=== PATIENT | female | born 1995 | race Caucasian/White ===

== ENCOUNTER 2021-10-27 15:14 | Day surgery (SDC) | payer BC ==
[2021-10-27 15:39] VITALS: BMI 47.4
[2021-10-27] MEDS ORDERED: hydrALAZINE 20 MG/ML VIAL SLOW IVP PRN (16:27)
[2021-10-27 17:36] LABS: Creatinine, Urine 207.02 mg/dL (47-110)
[2021-10-27 18:15] LABS: #Eosinphils 0.1 10x3/uL (0.0-0.5); #Monocytes 0.8 10x3/uL (0.0-1.1); #Neutrophils 7.9 10x3/uL (1.5-8.4); %Basophils 0.3 % (0.0-2.0); %Eosinophils 0.9 % (0.0-6.0); %Lymphocytes 15.7 % (18.0-47.0); %Monocytes 7.3 % (0.0-10.0); Hemoglobin 12.2 g/dL (12.0-15.5); Mean Corpuscular Volume 91.1 fl (81.6-98.3); Mean Platelet Volume 10.6 fl (7.4-10.4); Platelet Count 240 10x3/uL (150-450); RBC Distribution Width 13.5 % (11.5-14.5); Red Blood Cell (RBC) Count 3.94 10x6/uL (3.90-5.03); White Blood Cell (WBC) Count 10.6 10x3/uL (3.5-10.5)
[2021-10-27 18:30] LABS: ALT (SGPT) 20 U/L (8-55); AST (SGOT) 17 U/L (5-34); Albumin 3.6 g/dL (3.5-5.0); Alkaline Phosphatase 66 U/L (40-110); Anion Gap 15 mmol/L (10-20); BUN (Urea Nitrogen) 4 mg/dL (7.0-18.7); Bilirubin, Total 0.3 mg/dL (0.2-1.2); Calc. Creatinine Clearance 406 mL/min (70-130); Calcium 9.9 mg/dL (7.8-10.44); Carbon Dioxide 21 mmol/L (22-29); Chloride 103 mmol/L (98-107); Estimated GFR 133; Glucose 83 mg/dL (70-105); Potassium 3.2 mmol/L (3.5-5.1); Protein, Total 6.6 g/dL (6.0-8.3); Sodium 136 mmol/L (136-145)
== END 2021-10-27 19:10 | disposition home or self-care (01) ==
LOC: CSHLD/OP 15:14
PROVIDERS: ATTEND Obstetrics & Gynecology
DX: O99.891 Other specified diseases and conditions complicating pregnancy (principal); R03.0 Elevated blood-pressure reading, without diagnosis of hypertension; Z3A.28 28 weeks gestation of pregnancy
CPT/HCPCS: 36415; 80053; 82570; 84156; 85025; 99282

== ENCOUNTER 2021-12-25 08:10 | Outpatient (CLI) | payer BC | END 2021-12-25 08:11 | disposition home or self-care (01) | LOC: CSHLAB 08:10 | PROVIDERS: ATTEND Advanced Practice Midwife | DX: Z20.822 Contact with and (suspected) exposure to COVID-19 (principal) | CPT/HCPCS: 87811 ==

== ENCOUNTER 2021-12-28 18:00 | Inpatient (IN) | payer BC ==
[2021-12-28] MEDS ORDERED: Promethazine HCl 25 MG/ML VIAL IM PRN (18:54)
[2021-12-28] MEDS ORDERED: Lidocaine 1% (PF) 30 ML VIAL SC PRN (18:54)
[2021-12-28] MEDS ORDERED: Misoprostol 200 MCG TAB PR PRN (18:54)
[2021-12-28] MEDS ORDERED: Ibuprofen 800 MG TAB PO PRN (18:54)
[2021-12-28] MEDS ORDERED: Diphenoxylate HCl/Atropine Tablet PO PRN ×2 (18:54)
[2021-12-28] MEDS ORDERED: Carboprost 250 MCG/ML AMP IM PRN (18:54)
[2021-12-28] MEDS ORDERED: Ondansetron PF 4 MG/2 ML Vial IVP PRN (18:54)
[2021-12-28] MEDS ORDERED: HYDROcodone/Acetaminophen 5/325 mg Tablet PO PRN ×2 (18:54)
[2021-12-28] MEDS ORDERED: hydrALAZINE 20 MG/ML VIAL SLOW IVP PRN (18:54)
[2021-12-28] MEDS ORDERED: Butorphanol Tartrate 1 MG/ML VIAL SLOW IVP PRN (18:54)
[2021-12-28] MEDS ORDERED: Penicillin G Potassium 5 MILL.UNITS in Sodium Chloride 0.9% 100 ML IVPB SCH (19:00)
[2021-12-28] MEDS ORDERED: NS w/ Oxytocin 30 units 500 ML IV SCH ×2 (19:00)
[2021-12-29] MEDS ORDERED: ePHEDrine Sulfate 50 MG/10 ML VIAL ONE (06:00)
[2021-12-29] MEDS ORDERED: Bupivacaine/Epinephrine 0.25% 30 ML VIAL ONE (06:00)
[2021-12-29 07:21] LABS: Hemoglobin 12.3 g/dL (12.0-15.5); Mean Corpuscular HGB CONC 34.6 g/dL (32.0-36.0); Mean Corpuscular Hemoglobin 31.2 pg (27.0-33.0); Mean Corpuscular Volume 90.1 fl (81.6-98.3); Mean Platelet Volume 10.7 fl (7.4-10.4); Platelet Count 195 10x3/uL (150-450); RBC Distribution Width 13.8 % (11.5-14.5); Red Blood Cell (RBC) Count 3.94 10x6/uL (3.90-5.03); White Blood Cell (WBC) Count 9.9 10x3/uL (3.5-10.5)
[2021-12-29 07:51] LABS: HBSAg Index 0.23 S/CO (0-0.99); Hep B Surf Ag Non-Reactive S/CO (NonReactive)
[2021-12-29 07:53] LABS: Syphilis Antibody Nonreactive (Nonreactive); Syphilis Antibody Index 0.06 S/CO (<1.00 Non-Reactive)
[2021-12-29] MEDS ORDERED: Penicillin G Potassium 5 MILL.UNITS VIAL ONE (07:54)
[2021-12-29] MEDS: Misoprostol 100 MCG TAB VAG SCH ×3 (07:54→22:10)
[2021-12-29 13:11] VITALS: BMI 47.4
[2021-12-29] MEDS: Penicillin G 2.5 MILL.units 2.5 MILL.UNITS in Premix Bag 1 BAG IVPB SCH ×3 (14:01→23:09)
[2021-12-29] MEDS ORDERED: Zolpidem Tartrate 5 MG TAB PO PRN (21:00)
[2021-12-30] MEDS: Misoprostol 100 MCG TAB VAG SCH (02:19)
[2021-12-30] MEDS: Penicillin G 2.5 MILL.units 2.5 MILL.UNITS in Premix Bag 1 BAG IVPB SCH ×3 (05:02→20:29)
[2021-12-30] MEDS ORDERED: Fentanyl 2 mcg/Bup 0.1% Cadd 100 ML ONE (19:14)
[2021-12-30] MEDS ORDERED: Naloxone HCl 0.4 mg/ml Vial IVP PRN ×2 (20:05)
[2021-12-30] MEDS ORDERED: Ondansetron PF 4 MG/2 ML Vial IVP PRN (20:05)
[2021-12-30] MEDS ORDERED: diphenhydrAMINE 50 MG/ML VIAL IVP PRN (20:05)
[2021-12-30] MEDS ORDERED: Acetaminophen 325 MG TAB PO PRN (20:05)
[2021-12-30] MEDS ORDERED: Promethazine HCl 25 MG/ML VIAL IM PRN (20:05)
[2021-12-30] MEDS ORDERED: ePHEDrine Sulfate 50 MG/10 ML VIAL SLOW IVP PRN (20:05)
[2021-12-30] MEDS ORDERED: Lactated Ringer's 500 ML IV PRN (20:05)
[2021-12-30] MEDS ORDERED: Moisturizing Cream (Eucerin) 113 GM JAR TOP PRN (20:05)
[2021-12-30] MEDS ORDERED: Communication Order-Pharmacy FS SCH (20:15)
[2021-12-30] MEDS ORDERED: Fentanyl 2 mcg/Bupivacaine 0.1% Cassette 100 ML EPIDURAL SCH (20:15)
[2021-12-30] MEDS ORDERED: Fentanyl 100 MCG/2 ML VIAL ONE (21:58)
[2021-12-31] MEDS: Lactated Ringer's 1,000 ML IV SCH ×3 (00:45→06:13)
[2021-12-31] MEDS: Penicillin G 2.5 MILL.units 2.5 MILL.UNITS in Premix Bag 1 BAG IVPB SCH ×3 (00:45→00:47)
[2021-12-31] MEDS: Misoprostol 100 MCG TAB VAG SCH ×2 (00:46→06:16)
[2021-12-31] MEDS ORDERED: NS w/ Oxytocin 30 units 500 ML IV SCH (05:24)
[2021-12-31] MEDS ORDERED: Bisacodyl 10 MG SUPP PR PRN (05:24)
[2021-12-31] MEDS ORDERED: Milk Of Magnesia 30 ML UDCUP PO PRN (05:24)
[2021-12-31] MEDS ORDERED: Boostrix 0.5 ML (Tdap) VIAL (>/=7 yrs of age) IM ONE (05:24)
[2021-12-31] MEDS ORDERED: HYDROcodone/Acetaminophen 5/325 mg Tablet PO PRN (05:24)
[2021-12-31] MEDS ORDERED: Ondansetron PF 4 MG/2 ML Vial IVP PRN (05:24)
[2021-12-31] MEDS ORDERED: hydrALAZINE 20 MG/ML VIAL SLOW IVP PRN (05:24)
[2021-12-31] MEDS ORDERED: Misoprostol 200 MCG TAB VAG PRN (05:24)
[2021-12-31] MEDS ORDERED: Benzocaine-Menthol 82.5 ML CAN TOP PRN (05:24)
[2021-12-31] MEDS ORDERED: Lanolin Ointment 7 GM TUBE TOP PRN (05:24)
[2021-12-31] MEDS: Ibuprofen 800 MG TAB PO SCH ×3 (05:35→21:23)
[2021-12-31] MEDS: HYDROcodone/Acetaminophen 5/325 mg Tablet PO PRN ×3 (07:19→22:34)
[2021-12-31] MEDS ORDERED: NS w/ Oxytocin 30 units 500 ML ONE (07:30)
[2021-12-31] MEDS ORDERED: Misoprostol 200 MCG TAB ONE (07:30)
[2021-12-31] MEDS ORDERED: Carboprost 250 MCG/ML AMP ONE (07:30)
[2021-12-31] MEDS ORDERED: Methylergonovine 0.2 MG/ML VIAL ONE (07:30)
[2021-12-31 08:29] LABS: Hemoglobin 11.1 g/dL (12.0-15.5); Mean Corpuscular HGB CONC 34.8 g/dL (32.0-36.0); Mean Corpuscular Hemoglobin 31.4 pg (27.0-33.0); Mean Corpuscular Volume 90.1 fl (81.6-98.3); Mean Platelet Volume 10.6 fl (7.4-10.4); Platelet Count 171 10x3/uL (150-450); RBC Distribution Width 13.8 % (11.5-14.5); Red Blood Cell (RBC) Count 3.54 10x6/uL (3.90-5.03); White Blood Cell (WBC) Count 14.3 10x3/uL (3.5-10.5)
[2021-12-31 08:48] LABS: D-Dimer Test 3.21 mg/L FEU (0.19-0.50); PTT 29.8 sec (22.0-33.0); Prothrombin Time 10.7 sec (9.5-12.1)
[2021-12-31] MEDS ORDERED: Misoprostol 200 MCG TAB PR SCH (09:00)
[2021-12-31] MEDS ORDERED: Diphenoxylate HCl/Atropine Tablet PO SCH (09:00)
[2021-12-31] MEDS ORDERED: Carboprost 250 MCG/ML AMP IM SCH (09:00)
[2021-12-31] MEDS: Ferrous Sulfate 325 MG TAB PO SCH ×2 (09:17→18:17)
[2021-12-31] MEDS ORDERED: Tranexamic Acid 1,000 MG in Sodium Chloride 0.9% 250 ML 250 ML IVPB SCH ×2 (10:15→11:15)
[2021-12-31] MEDS: Docusate 100 MG CAP PO SCH ×2 (10:59→21:23)
[2021-12-31] MEDS: Prenatal Vitamin 1 TAB PO SCH (10:59)
[2021-12-31 15:13] LABS: Hemoglobin 10.1 g/dL (12.0-15.5); Mean Corpuscular HGB CONC 34.5 g/dL (32.0-36.0); Mean Corpuscular Hemoglobin 31.1 pg (27.0-33.0); Mean Corpuscular Volume 90.2 fl (81.6-98.3); Mean Platelet Volume 10.5 fl (7.4-10.4); Platelet Count 185 10x3/uL (150-450); RBC Distribution Width 13.9 % (11.5-14.5); Red Blood Cell (RBC) Count 3.25 10x6/uL (3.90-5.03); White Blood Cell (WBC) Count 12.9 10x3/uL (3.5-10.5)
[2021-12-31] MEDS ORDERED: Lactated Ringer's 1,000 ML IV SCH (18:30)
[2022-01-01] MEDS: Ibuprofen 800 MG TAB PO SCH ×3 (05:16→21:08)
[2022-01-01] MEDS: Lactated Ringer's 1,000 ML IV SCH (08:00)
[2022-01-01] MEDS: Penicillin G 2.5 MILL.units 2.5 MILL.UNITS in Premix Bag 1 BAG IVPB SCH (08:01)
[2022-01-01] MEDS: Misoprostol 100 MCG TAB VAG SCH (08:01)
[2022-01-01] MEDS: Docusate 100 MG CAP PO SCH ×2 (08:36→21:09)
[2022-01-01] MEDS: Ferrous Sulfate 325 MG TAB PO SCH ×2 (08:36→17:04)
[2022-01-01] MEDS: Prenatal Vitamin 1 TAB PO SCH (08:36)
[2022-01-01] MEDS: HYDROcodone/Acetaminophen 5/325 mg Tablet PO PRN (22:18)
[2022-01-02] MEDS: Ibuprofen 800 MG TAB PO SCH ×2 (05:31→13:47)
[2022-01-02 08:21] VITALS: TEMP 98.5
[2022-01-02] MEDS: Docusate 100 MG CAP PO SCH (08:57)
[2022-01-02] MEDS: Prenatal Vitamin 1 TAB PO SCH (08:57)
[2022-01-02] MEDS: Ferrous Sulfate 325 MG TAB PO SCH (08:58)
[2022-01-02 11:57] VITALS: BP 114/59
== END 2022-01-02 15:50 | disposition home or self-care (01) | DRG 806 ==
LOC: CSHLD 12-29 06:06 → CSHPP 12-31 06:30
PROVIDERS: ADMIT Obstetrics & Gynecology; ATTEND Obstetrics & Gynecology
PROC: 10907ZC Drainage of Amniotic Fluid, Therapeutic from Products of Conception, Via Natural or Artificial Opening (ICD-10-PCS; 2021-12-30)
PROC: 10H07YZ Insertion of Other Device into Products of Conception, Via Natural or Artificial Opening (ICD-10-PCS; 2021-12-30)
PROC: 10E0XZZ Delivery of Products of Conception, External Approach (ICD-10-PCS; principal; 2021-12-31)
DX: O13.4 Gestational [pregnancy-induced] hypertension without significant proteinuria, complicating childbirth (principal); R71.0 Precipitous drop in hematocrit; Z37.0 Single live birth; O24.420 Gestational diabetes mellitus in childbirth, diet controlled; Z3A.37 37 weeks gestation of pregnancy; E03.9 Hypothyroidism, unspecified; E66.01 Morbid (severe) obesity due to excess calories; O99.214 Obesity complicating childbirth; O99.284 Endocrine, nutritional and metabolic diseases complicating childbirth; O99.824 Streptococcus B carrier state complicating childbirth; F12.90 Cannabis use, unspecified, uncomplicated; O99.324 Drug use complicating childbirth; O69.81X0 Labor and delivery complicated by cord around neck, without compression, not applicable or unspecified; O69.89X0 Labor and delivery complicated by other cord complications, not applicable or unspecified; O72.2 Delayed and secondary postpartum hemorrhage; O90.89 Other complications of the puerperium, not elsewhere classified
CPT/HCPCS: 36415; 51702; 85014; 85018; 85027; 85049; 85300; 85362; 85379; 85384; 85610; 85730; 86780; 86850; 86900; 86901; 87340; J0595; J2405; J2540; J2590; J3010; J3490; J7050; J7120

== ENCOUNTER 2023-09-09 15:28 | Emergency (ER) | payer BC ==
[~2023-09-09 15:28] MED LIST: Iopamidol 300 61% 100 ML VIAL FS ONE
[2023-09-09 17:03] LABS: #Basophils 0.06 10x3/uL (0.0-0.2); #Eosinphils 0.18 10x3/uL (0.0-0.5); #Monocytes 0.62 10x3/uL (0.0-1.1); #Neutrophils 5.18 10x3/uL (1.5-8.4); %Basophils 0.7 % (0.0-2.0); %Eosinophils 2.1 % (0.0-6.0); %Lymphocytes 29.7 % (18.0-47.0); %Monocytes 7.2 % (0.0-10.0); Hematocrit 36.8 % (34.9-44.5); Hemoglobin 12.2 g/dL (12.0-15.5); Mean Corpuscular HGB CONC 33.2 g/dL (32.0-36.0); Mean Corpuscular Hemoglobin 30.7 pg (27.0-33.0); Mean Corpuscular Volume 92.5 fl (81.6-98.3); Mean Platelet Volume 10.3 fl (7.4-10.4); Platelet Count 274 10x3/uL (150-450); RBC Distribution Width 12.2 % (11.5-14.5); Red Blood Cell (RBC) Count 3.98 10x6/uL (3.90-5.03); White Blood Cell (WBC) Count 8.6 10x3/uL (3.5-10.5)
[2023-09-09 17:11] LABS: BHCG - Serum Negative (NEGATIVE); Pregs Control Background? CLEAR/WHITE (CLR/WHITE); Pregs Control Bar Appear? YES (CONTROL BAR)
[2023-09-09 17:15] LABS: ALT (SGPT) 65 U/L (8-55); AST (SGOT) 14 U/L (5-34); Albumin 3.7 g/dL (3.5-5.0); Alkaline Phosphatase 85 U/L (40-110); Anion Gap 13 mmol/L (10-20); BUN (Urea Nitrogen) 19 mg/dL (7.0-18.7); Bilirubin, Total 0.6 mg/dL (0.2-1.2); Calc. Creatinine Clearance 0 mL/min (70-130); Calcium 9.1 mg/dL (7.8-10.44); Carbon Dioxide 23 mmol/L (22-29); Chloride 104 mmol/L (98-107); Estimated GFR 118; Globulin 3.2 g/dL (2.4-3.5); Glucose 80 mg/dL (70-105); Lipase 19 U/L (8-78); Potassium 4.3 mmol/L (3.5-5.1); Protein, Total 6.9 g/dL (6.0-8.3); Sodium 136 mmol/L (136-145)
[2023-09-09] MEDS ORDERED: Acetaminophen 500 MG TAB ONE (17:16)
[2023-09-09 17:52] LABS: Bilirubin Neg (Negative); Blood, Urine 250 (Negative); Clarity Cloudy (Clear); Glucose, Urine (Dipstick) Normal (Negative); Ketone, Urine Negative (Negative); Leukocyte 100 (Negative); Nitrite Negative (Negative); Protein, Urine (Dipstick) 100 mg/dl (Neg-Trace); Specific Gravity, Urine 1.015 (1.005-1.030); Urobilinogen Normal mg/dL (Less than 2)
[2023-09-09 18:14] LABS: RBC/HPF Greater than 50 HPF (0-3)
[2023-09-09 18:15] LABS: Bacteria/HPF 3+ HPF (None Seen); CAUTI Indications for Culture Acute Hematuria; Squamous Epithelial 0-3 HPF (0-3); Urine Culture Reflex No No
== END 2023-09-09 18:11 | disposition home or self-care (01) ==
LOC: CSHERS 15:28
DX: R10.9 Unspecified abdominal pain (principal)
CPT/HCPCS: 74177; 80053; 81001; 83690; 84703; 85025; Q9967